=== PATIENT | female | born 1970 | race Two or more races ===

== ENCOUNTER 2022-11-02 13:34 | Day surgery (SDC) | payer BC ==
[~2022-11-02] VITALS: Ht 157.5 cm; Wt 72.1 kg
[2022-11-02] MEDS ORDERED: CT SWABBABLE VALVE TRANS SET 1 EA INFUS.SET MC ONE (13:47)
[2022-11-02] MEDS ORDERED: IV NS 0.9% 250 ML IV ONE (13:47)
[2022-11-02] MEDS ORDERED: IOHEXOL-350 100 ML VIAL IV ONE (13:47)
[2022-11-02] MEDS ORDERED: METOPROLOL TARTRATE INJ 5 MG/5 ML AMPUL ONE (13:54)
[2022-11-02] MEDS ORDERED: NITROGLYCERIN 0.4 MG/TAB BOTTLE ONE (13:54)
[2022-11-02 13:58] VITALS: BP 154/91
[2022-11-02] MEDS ORDERED: METOPROLOL TARTRATE INJ 5 MG/5 ML AMPUL IVP PRN (14:00)
[2022-11-02] MEDS ORDERED: NITROGLYCERIN 0.4 MG/TAB BOTTLE SL ONE (14:00)
== END 2022-11-02 14:11 | disposition short-term general hospital (02) ==
LOC: CT 13:34
PROVIDERS: ATTEND Internal Medicine Interventional Cardiology
DX: I65.22 Occlusion and stenosis of left carotid artery (principal); I31.39 Other pericardial effusion (noninflammatory); I70.0 Atherosclerosis of aorta; R07.9 Chest pain, unspecified
CPT/HCPCS: 75574; J7050; Q9967; J3490